=== PATIENT | female | born 1980 | race Two or more races ===

== ENCOUNTER → 2024-04-14 | Outpatient (CLI) | payer BC, SELFPAY ==
--- NOTE | 2024-04-14 | XR_ITS ---
Examination: Retroperitoneal ultrasound, complete Technique: Multiple high resolution grayscale images of the retroperitoneum obtained, including kidneys and bladder. Exam date and time:April 14, 2024 1150 hours INDICATIONS: Left flank pain radiating to the left groin and leg beginning one week ago FINDINGS: Right kidney 12.1 x 4.8 x 4.7 cm renal cortex 1.7 cm Midpole 9 mm calculus and adjacent 9 mm calculus Left kidney 11.2 x 5.2 x 4.7 cm in the cortex 1.8 cm Mild bilateral renal parenchymal scar formation No hydronephrosis No bladder mass or bladder calculi Bladder prevoid volume 332 cc postvoid volume 6 cc IMPRESSION: Nonobstructing right renal calculi Mild bilateral renal parenchymal scar formation
--- NOTE | 2024-04-14 | XR_ITS ---
Examination: Transvaginal ultrasound of the pelvis, complete Technique: Transvaginal sonographic images pelvis performed using manzo scale imaging Exam date and time: April 14, 2024 1209 hours INDICATIONS: Pelvic pain beginning one week ago, hysterectomy, history removal left ovary FINDINGS: Absent uterus Absent left ovary Right ovary obscured by bowel gas No free fluid in the pelvis IMPRESSION: Limited study No pelvic mass demonstrated
== END | disposition home or self-care (01) ==
LOC: CDIM 13:04 → SLDO 13:22
PROVIDERS: PCP Family Medicine; Referring Provider Family Medicine; Visit Provider Radiology Diagnostic Radiology
DX: N20.0 Calculus of kidney (principal); N28.89 Other specified disorders of kidney and ureter; R10.2 Pelvic and perineal pain; N39.0 Urinary tract infection, site not specified
CPT/HCPCS: 76770; 76830; 87086